=== PATIENT | male | born 1945 | race Caucasian/White ===

== ENCOUNTER 2017-07-07 17:37 | Inpatient (IN) | payer OTHER ==
[~2017-07-07] VITALS: Ht 175.3 cm; Wt 85.5 kg
--- NOTE | 2017-07-07 17:40 | NUR ---
AAOX2, BIB [facility], FOUND BY STRANGER ON THE FLOOR LONG TERM OUTSIDE HIS DOOR,BLOOD SUGAR = 76MG/DL FUR FEEDER. SKIN IS WARM AND DRY. RESP IS EVEN AND UNLABORED WITH NAD NOTED. SCRAPE TO LEFT FOREHEAD AND L KNEE. DR MOCTEZUMA AT BS FOR EVAL.
[2017-07-07] MEDS ORDERED: IV NS 0.9% 1,000 ML BAG IV ONE (18:00)
[2017-07-07 18:05] LABS: BASOPHILS % (AUTO) 0.7 % (0.0-2.0); EOSINOPHILS # (AUTO) 0.2 /CMM (0.0-0.7); EOSINOPHILS % (AUTO) 4.2 % (0.0-6.0); HEMATOCRIT 31 % (39-51); HEMOGLOBIN 10.3 g/dL (13.5-17.5); LYMPHOCYTES # (AUTO) 0.8 /CMM (0.8-4.8); LYMPHOCYTES % (AUTO) 22.4 % (20.0-44.0); MEAN CORPUSCULAR HEMOGLOBIN 31 PG (26.0-33.0); MEAN CORPUSCULAR HGB CONC 33 g/dl (31.0-36.0); MEAN CORPUSCULAR VOLUME 92 fL (80-96); MONOCYTES # (AUTO) 0.3 /CMM (0.1-1.30); MONOCYTES % (AUTO) 8.5 % (2.0-12.0); NEUTROPHILS # (AUTO) 2.4 /CMM (1.8-8.9); NEUTROPHILS % (AUTO) 64.2 % (43.0-81.0); PLATELET COUNT (AUTO) 73 /CMM (150-450); RED BLOOD CELL COUNT(AUTO) 3.39 MIL/uL (4.5-6.0); WHITE BLOOD COUNT (AUTO) 3.8 K/uL (4.3-11.0)
[2017-07-07 18:25] LABS: INR 1.12 (0.87-1.13); PROTHROMBIN TIME 11.7 SECS (9.5-12.7)
--- NOTE | 2017-07-07 18:25 | NUR ---
PATIENT TRANSPORTED FOR CT HEAD VIA [facility].
[2017-07-07 18:41] LABS: TROPONIN I < 0.017 ng/mL (0.00-0.056)
[2017-07-07 18:49] LABS: THYROID STIMULATING HORMONE 0.139 uIU/mL (0.358-3.74)
[2017-07-07] MEDS ORDERED: IV LR 1000 ML 1,000 ML IV ONE ×2 (19:00→19:30)
[2017-07-07 19:18] LABS: ALANINE AMINOTRANSFERASE 21 U/L (12-78); ALBUMIN 3.7 g/dL (3.4-5.0); ALCOHOL, BLOOD < 3 mg/dL (0-0); ALKALINE PHOSPHATASE 109 U/L (46-116); ASPARTATE AMINOTRANSFERASE 14 U/L (15-37); BILIRUBIN,DIRECT 0.3 mg/dL (0.0-0.2); BILIRUBIN,TOTAL 0.8 mg/dL (0.2-1.0); CALCIUM, SERUM 9.9 mg/dL (8.5-10.1); CARBON DIOXIDE 18 mmol/L (21-32); CHLORIDE 114 mmol/L (98-107); CREATININE 4.6 mg/dL (0.6-1.3); GLUCOSE 75 mg/dL (74-106); SODIUM SERUM 151 mmol/L (136-145); TOTAL PROTEIN, SERUM 7.6 g/dL (6.4-8.2)
[2017-07-07 19:21] LABS: UREA NITROGEN, BLOOD 101 mg/dL (7-18)
[2017-07-07 19:29] LABS: APPEARANCE,URINE CLEAR (CLEAR); BILIRUBIN,URINE 2+ (NEGATIVE); BLOOD, URINE NEGATIVE Ery/uL (NEGATIVE); COLOR,URINE YELLOW (YELLOW); KETONES,URINE TRACE (NEGATIVE); LEUKOCYTE ESTERASE ,URINE NEGATIVE (NEGATIVE); NITRITE, URINE NEGATIVE (NEGATIVE); PH,URINE 5.5 (5.0-8.0); PROTEIN,URINE NEGATIVE (NEGATIVE); UGLUCOSE NEGATIVE (NEGATIVE); UROBILINOGEN,URINE 0.2 EU/dL (0.2)
[2017-07-07 19:46] LABS: BACTERIA,URINE Rare /HPF (None Seen); RBC,URINE 0-2 /HPF (0-2); SQUAMOUS EPITHELIAL CELL,UR 0-2 /HPF (None Seen); URINE AMORPHOUS URATE Few /HPF (None Seen); WBC,URINE 0-2 /HPF (0-3)
--- NOTE | 2017-07-07 19:50 | NUR ---
DR. MAURO MOCTEZUMA ON THE PHONE WITH DR. JARETH MCINTYRE
--- NOTE | 2017-07-07 20:02 | NUR ---
Report given to Mary SILVA for admission and rk.
[2017-07-07 20:15] VITALS: BP 103/63
--- NOTE | 2017-07-07 20:16 | NUR ---
Transferred patient to tele floor [id number] via als protocol, no incident noted.
--- NOTE | 2017-07-07 20:30 | NUR ---
received pt alert,oriented x2,confused, incoherent. denies any pain at this time,vss,afebrile, on monitor sinus rhythm @ 80's.skin with multiple bruising and abrasion. picture taken, fall risk observed, bed alarm active at all times.will continue to monitor, call light at reached.
[2017-07-07 21:15] LABS: SERUM AMMONIA 32 umol/L (11-32)
[2017-07-07 21:55] LABS: EOSINOPHILS % (MANUAL) 2 % (0-4); LYMPHOCYTES % (MANUAL) 31 % (16-48); MONOCYTES % (MANUAL) 9 % (0-11.0); NEUTROPHILS % (MANUAL) 58 (42-76)
[2017-07-07] MEDS: IV 1/2NS 1000 ML 1,000 ML IV SCH (22:25)
[2017-07-07] MEDS ORDERED: ACETAMINOPHEN 325 MG TABLET PO PRN (22:30)
[2017-07-08] VITALS: BP 104/65
[2017-07-08 04:00] VITALS: BP 98/63
--- NOTE | 2017-07-08 06:00 | NUR ---
PT TRANSFER TO ROOM 304 WITH SITTER, pt on iv fluids and pt voids most of the time, and pt gets up without calling, pulled out clothes and monitor. pt noted very unsteady. had x2 large bm,disoriented, pt admission data obtained from pt but not reliable as pt is disoriented.vss,afebrile,all needs attended, bed alarm active.
[2017-07-08] MEDS: IV 1/2NS 1000 ML 1,000 ML IV SCH (06:33)
--- NOTE | 2017-07-08 07:55 | NUR ---
RN NOTES RECEIVED PT. PT IS A/OX2, AWAKE AND IN BED. NO S/S OF DISTRESS OR SOB WHILE PT IS ON RA. NO C/O PAIN AT THIS TIME. IV ACCESS LOCATED ON RIGHT AC RUNNING 1/2 NS AT 125CC/HR. BSC REMAINS BEDSIDE. PT HAS A SITTER BEDSIDE.SAFETY MEASURES IN PLACE, CALL LIGHT WITHIN REACH. WILL CONTINUE TO MONITOR.
[2017-07-08 08:12] LABS: BASOPHILS % (AUTO) 0.7 % (0.0-2.0); EOSINOPHILS # (AUTO) 0.3 /CMM (0.0-0.7); EOSINOPHILS % (AUTO) 7.6 % (0.0-6.0); HEMATOCRIT 30 % (39-51); HEMOGLOBIN 9.9 g/dL (13.5-17.5); LYMPHOCYTES # (AUTO) 1.1 /CMM (0.8-4.8); LYMPHOCYTES % (AUTO) 25.9 % (20.0-44.0); MEAN CORPUSCULAR HEMOGLOBIN 31 PG (26.0-33.0); MEAN CORPUSCULAR HGB CONC 33 g/dl (31.0-36.0); MEAN CORPUSCULAR VOLUME 92 fL (80-96); MONOCYTES # (AUTO) 0.3 /CMM (0.1-1.30); MONOCYTES % (AUTO) 7.2 % (2.0-12.0); NEUTROPHILS # (AUTO) 2.5 /CMM (1.8-8.9); NEUTROPHILS % (AUTO) 58.6 % (43.0-81.0); PLATELET COUNT (AUTO) 67 /CMM (150-450); RDW COEFFICIENT OF VARIATION 13.8 (11.5-15.0); RED BLOOD CELL COUNT(AUTO) 3.23 MIL/uL (4.5-6.0); WHITE BLOOD COUNT (AUTO) 4.2 K/uL (4.3-11.0)
[2017-07-08 08:23] LABS: CALCIUM, SERUM 9.4 mg/dL (8.5-10.1); CREATININE 2.6 mg/dL (0.6-1.3); POTASSIUM 5.4 mmol/L (3.5-5.1)
[2017-07-08] MEDS: PANTOPRAZOLE 40 MG VIAL IV SCH (08:29)
[2017-07-08 12:00] VITALS: BP 97/63
[2017-07-08] MEDS: TAMSULOSIN 0.4 MG CAP.SR.24H PO SCH ×2 (12:30→20:53)
[2017-07-08 12:41] LABS: IRON, SERUM 136 ug/dl (50-175); TOTAL IRON BINDING CAPACITY 153 ug/dl (250-450)
[2017-07-08 13:00] LABS: CREATINE KINASE, TOTAL 165 U/L (39-308)
[2017-07-08] MEDS: IV 1/2NS 1000 ML 1,000 ML IV PRN (18:36)
--- NOTE | 2017-07-08 18:49 | NUR ---
RN CLOSING NOTES PT IS IN BED RESTING. A/OX4. NO S/S OF DISTRESS OR SOB. NO C/O PAIN AT THIS TIME. ALL PT NEEDS ANTICIPATED AND MET. SAFETY MEASURES IN PLACE, CALL LIGHT WITHIN REACH. WILL ENDORSE TO TUBE BLOWER FOR DORA. Addendum: 07/08/17 at 1850 by OLIVER SOMERS A/OX2
[2017-07-08 20:00] VITALS: BP 147/82
[2017-07-08] MEDS ORDERED: HEPARIN SODIUM, PORCINE 5000 UNITS/1 ML VIAL SQ SCH (22:00)
[2017-07-09] MEDS: IV 1/2NS 1000 ML 1,000 ML IV PRN (04:00)
[2017-07-09 05:00] VITALS: BP_SYST 12; BP_SYST 121; BP_DIAS 83
--- NOTE | 2017-07-09 06:31 | NUR ---
pt not sleeping all night, kept talking about going home giving multiple telephone numbers of his brother . was still able to pulled out iv despite sitter at bedside.and reinserted on the same arm. voiding to commode, urine sample sent to lab.vss, afebrile,sinus rhythm on monitor,will continue to monitor.
[2017-07-09 07:09] LABS: BASOPHILS % (AUTO) 0.7 % (0.0-2.0); EOSINOPHILS # (AUTO) 0.3 /CMM (0.0-0.7); EOSINOPHILS % (AUTO) 5.9 % (0.0-6.0); HEMATOCRIT 32 % (39-51); HEMOGLOBIN 10.7 g/dL (13.5-17.5); LYMPHOCYTES % (AUTO) 19.2 % (20.0-44.0); MEAN CORPUSCULAR HEMOGLOBIN 31 PG (26.0-33.0); MEAN CORPUSCULAR HGB CONC 33 g/dl (31.0-36.0); MEAN CORPUSCULAR VOLUME 93 fL (80-96); MONOCYTES # (AUTO) 0.2 /CMM (0.1-1.30); MONOCYTES % (AUTO) 4.7 % (2.0-12.0); NEUTROPHILS # (AUTO) 3.7 /CMM (1.8-8.9); NEUTROPHILS % (AUTO) 69.5 % (43.0-81.0); PLATELET COUNT (AUTO) 73 /CMM (150-450); RDW COEFFICIENT OF VARIATION 14.1 (11.5-15.0); RED BLOOD CELL COUNT(AUTO) 3.45 MIL/uL (4.5-6.0); WHITE BLOOD COUNT (AUTO) 5.3 K/uL (4.3-11.0)
--- NOTE | 2017-07-09 07:32 | NUR ---
TELE/RN NOTES RECEIVED PATIENT RESTING IN BED WITH SITTER AT BEDSIDE. PT ALERT AND ORIENTEDX1-2, PLEASANTLY CONFUSED IN NO APPARENT DISTRESS, RESPIRATIONS EVEN AND UNLABORED, ON ROOM AIR. DENIES ANY PAIN OR DISCOMFORT AT THIS TIME. ON TELE SR HR IN 80S. IV TO RIGHT FA INFUSING 1/2NS AT 125C/HR. PT WITH 1 TO 1 SITTER FOR SAFETY. FALL/SAFETY PRECAUTIONS RENDERED, CALL LIGHT PLACED WITHIN REACH, WILL CONTINUE TO MONITOR
[2017-07-09 07:38] LABS: ALBUMIN 3.4 g/dL (3.4-5.0); BILIRUBIN,TOTAL 0.7 mg/dL (0.2-1.0); CALCIUM, SERUM 9.4 mg/dL (8.5-10.1); CREATININE 1.8 mg/dL (0.6-1.3); POTASSIUM 5.3 mmol/L (3.5-5.1); TOTAL PROTEIN, SERUM 7.1 g/dL (6.4-8.2)
[2017-07-09 08:00] VITALS: BP_SYST 11; BP_SYST 111; BP_DIAS 74
[2017-07-09] MEDS ORDERED: IV D5W 1,000 ML IV PRN (09:30)
[2017-07-09] MEDS: PANTOPRAZOLE 40 MG VIAL IV SCH (09:36)
[2017-07-09 10:55] LABS: EOSINOPHILS % (MANUAL) 6 % (0-4); LYMPHOCYTES % (MANUAL) 7 % (16-48); MONOCYTES % (MANUAL) 6 % (0-11.0); NEUTROPHILS % (MANUAL) 81 (42-76)
--- NOTE | 2017-07-09 15:52 | NUR ---
TELE/RN NOTES PATIENT REMAINS CALM AND COOPERATIVE, NO SIGNIFICANT CHANGES IN CONDITION, APPEARS STABLE. 1:1 SITTER AT BEDSIDE ASSISTING WITH PATIENT CARE AND SAFETY
[2017-07-09 16:00] VITALS: BP_SYST 111; BP_SYST 125; BP_SYST 135; BP_DIAS 70; BP_DIAS 74
--- NOTE | 2017-07-09 18:34 | NUR ---
TELE/RN NOTES PATIENT STABLE, NO S/S OF DISTRESS/DISCOMFORT. APPEARS DISORIENTED WITH SITTER AT BEDSIDE FOR SAFETY. NO CHANGES IN CONDITION NOTED. WILL ENDORSE CARE TO GARMENT FITTER FOR DORA
--- NOTE | 2017-07-09 19:30 | NUR ---
TELE DIGITAL STRATEGY SPECIALIST INITIAL NOTES RECEIVED REPORT FROM NURSE [place] AND CHECKED THE PT AT THE SAME TIME. HE'S IN BED AT THIS TIME BUT WITH SITTER AT THE BEDSIDE FOR SAFETY. RE-ORIENTED WHERE HE AT AND HE JUST RESPONSE BY NODDING HIS HEAD. HE STILL WITH IVF OF D5W AT 100ML/HR INFUSING ON HIS RIGHT FOREARM PATENT AND INTACT. NOT IN ANY ACUTE DISTRESS NOTED AT THIS TIME. HE ALSO TELE SR HEART RATE 86 PER MONITOR. KEPT HIM WARM COMFORTABLE AND SAFE AT ALL TIMES. WILL CONTINUE TO MONITOR.
--- NOTE | 2017-07-09 19:55 | NUR ---
IMPORT/EXPORT ADMINISTRATOR/NOTES CALENDER MACHINE OPERATOR CALLED ME AND TELLING ME THAT HE SAW PT GOING OUT TO HIS ROOM EVEN WITH SITTER AT THE BEDSIDE.TRIED TO SPOKE TO PATIENT AND RE-ORIENTED THE PATIENT WHERE HE AT , HE STARTED WALKING NOTED UNSTEADY SO ME AND THE SITTER ASSISTED HIM WHILE HE'S WALKING. NO SIGNS OF ANY ACUTE DISTRESS NOTED. BACK TO HIS ROOM AND CONFUSION NOTED. SITTER AT THE BEDSIDE FOR SAFETY. TELE HEART RATE 84
[2017-07-09] MEDS ORDERED: OLANZAPINE 10 MG VIAL IM PRN (20:00)
[2017-07-09] MEDS ORDERED: OLANZAPINE 2.5 MG TABLET PO PRN (20:00)
--- NOTE | 2017-07-09 20:00 | NUR ---
RAILROAD SHOP INSPECTOR/NOTES SPOKE TO DR MCINTYRE TO LET HIM KNOW THE PT SEEMS RESTLESS AND CONFUSED. HE ORDERED ZYPREXA 2.5 MG PO ,BID PRN IF PT ABLE TO TAKE PO MEDS , AND IF NOT AND REFUSE TO TAKE PO MEDS GIVE ZYPREXA IM 2.5 MG BID PRN .
[2017-07-09] MEDS: TAMSULOSIN 0.4 MG CAP.SR.24H PO SCH (21:18)
--- NOTE | 2017-07-09 21:41 | NUR ---
PULLER OVER/NOTES PT AWAKE CONFUSION NOTED, ZYPREXA GIVEN WITH HIS OTHER MEDICATION WITH APPLE SAUCE AND PT TOLERATED WELL NO ASPIRATION NOTED. ALSO TRIED TO CALMED HIM DOWN BY TELLING HIM HIS IN THE HOSPITAL RIGHT NOW AND NEEDS TO STAYED TONIGHT FOR FURTHER OBSERVATION BECAUSE HE FELL AT HOME. TELE MONITOR PUT IT BACK AND SINUS RHYTHM PER PIPE FITTER FIRE [employer]INK[employer] SYSTEM[employer]. OFFERED SOME SNACKS ALSO. SITTER AT THE BEDSIDE FOR SAFETY.
[2017-07-09 22:06] VITALS: BP 102/64
[2017-07-10] VITALS: BP 110/72
--- NOTE | 2017-07-10 01:19 | NUR ---
truck cleaner/notes pt resting at this time without any signs of acute distress noted. kept him warm and comfortable at all times. sitter at the bedside for safety. will continue monitoring.
[2017-07-10 05:00] VITALS: BP 117/74
[2017-07-10 07:38] LABS: CREATININE 1.4 mg/dL (0.6-1.3); POTASSIUM 4.8 mmol/L (3.5-5.1)
--- NOTE | 2017-07-10 07:40 | NUR ---
TELE EQUIPMENT INSTALLER CLOSING NOTES PT AWAKE AND LYING IN BED STILL WITH CONFUSION NOTED BUT AWARE HIS NAME. NO SIGNS OF ANY ACUTE DISTRESS NOTED. DENIES ANY PAIN OR ANY DISCOMFORT. TELE SR PER MONITOR. STABLE [place] THE NIGHT EXCEPT PULLING HIS IV LINE. STILL UNSTEADY GAIT. KEPT HIM WARM AND COMFORTABLE AT ALL TIMES. PLACE CALL LIGHT AT REACH. SITTER AT THE BEDSIDE FOR SAFETY..
--- NOTE | 2017-07-10 07:45 | NUR ---
MOLD MAINTENANCE TECHNICIAN NOTES PT IN BED, AWAKE, ALERT TO SELF, WITH PERIODS OF CONFUSION, CALM AT THIS TIME, CALL LIGHT WITHIN REACH, IV FLUIDS INFUSING WELL, SITTER AT BEDSIDE, SAFETY PRECAUTIONS OBSERVED, NEEDS ATTENDED.
[2017-07-10 08:00] VITALS: BP 109/70
[2017-07-10] MEDS: PANTOPRAZOLE 40 MG VIAL IV SCH (08:35)
[2017-07-10] MEDS ORDERED: TAMS-12 PO (09:20)
[2017-07-10] MEDS ORDERED: OLAN2.5T3 PO (09:20)
--- NOTE | 2017-07-10 11:27 | NUR ---
RN MS NOTES PT IN BED, RESTING, NOT IN PAIN OR DISTRESS, SITTER AT BEDSIDE, SEEN BY DR. MCINTYRE, DISCHARGE PLAN AND DISCHARGE ORDER GIVEN, PT INFORMED.
[2017-07-10] MEDS ORDERED: FLU VACC QS 2017-18(36MOS+)/PF 0.5 ML DISP.SYRIN IM ONE (14:30)
--- NOTE | 2017-07-10 14:45 | NUR ---
RN MS NOTES FLU VACCINE ADMINISTERED PER PROTOCOL WITH PT'S VERBAL CONSENT.
--- NOTE | 2017-07-10 14:45 | NUR ---
RN MS NOTES PT IN BED, AWAKE, ALERT, DENIES PAIN OR DISCOMFORT, NOT IN DISTRESS, DISCHARGE AND MEDICATION INSTRUCTIONS PROVIDED TO PT, PT INFORMED THAT HE WILL BE TRANSFERRED TO [facility], PT VERBALIZED UNDERSTANDING, REPORT GIVEN TO GALINA SILVA OF [facility], CALLED PT'S BROTHER FERNANDO AT [phone], WRONG NUMBER, CALLED SIGNIFICANT OTHER BAL AT [phone], NO ANSWER, BELONGINGS ACCOUNTED FOR, PICKED UP BY 2 AMBULANCE PERSONNEL, LEFT VIA GUERNEY IN STABLE CONDITION.
== END 2017-07-10 14:45 | DRG 684 ==
LOC: ER 17:39 → TELE 21:09 → MED 07-10 10:42
PROVIDERS: ADMIT Internal Medicine; ATTEND Internal Medicine
DX: N17.9 Acute kidney failure, unspecified (principal); S09.90XA Unspecified injury of head, initial encounter; E87.5 Hyperkalemia; D64.9 Anemia, unspecified; I10 Essential (primary) hypertension; E86.0 Dehydration; N40.0 Benign prostatic hyperplasia without lower urinary tract symptoms; X58.XXXA Exposure to other specified factors, initial encounter; Y93.9 Activity, unspecified; Y92.009 Unspecified place in unspecified non-institutional (private) residence as the place of occurrence of the external cause
CPT/HCPCS: 36415; 70450-TC; 71010-TC; 72125-TC; 80048-TC; 80053-TC; 80076-TC; 80305; 81000-TC; 82140-TC; 82550-TC; 83540-TC; 83605-TC; 84443-TC; 84484-TC; 85025-TC; 85730-TC; 87040-TC; 87081-TC; A4606; C9113; G0480; J3490; J7030; J7070; J7120; L0172; Q2036; Z7610